=== PATIENT | female | born 1955 | race American Indian/Alaskan Native ===

== ENCOUNTER 2019-04-08 00:20 | Inpatient (IN) | payer MEDICAID, MEDICARE ==
--- NOTE | 2019-04-08 01:05 | XRay Report ---
CHEST 1 VIEW INDICATION / CLINICAL INFORMATION: tachycardia. COMPARISON: None available. FINDINGS: SUPPORT DEVICES: None. HEART / MEDIASTINUM: No significant abnormality. LUNGS / PLEURA: No significant pulmonary or pleural abnormality. No pneumothorax. ADDITIONAL FINDINGS: There are postthoracotomy changes on the right with a left shoulder prosthesis. IMPRESSION: 1 no acute abnormality. Signer Name: Yakov Maldonado MD Signed: 04/08/2019 1:01 AM Workstation Name: [id number]
--- NOTE | 2019-04-08 01:38 | Cat Scan Report ---
Head CT without intravenous contrast INDICATION: Headache COMPARISON: None FINDINGS: The ventricles are normal in size and position. No hemorrhage or extra-axial fluid collecti on. No edema or mass effect. No focal infarct seen. Portions of the sinuses visualized are clear. No skull fracture identified. IMPRESSION: Negative head CT Automated exposure control was utilized to diminish radiation dose Signer Name: Yakov Maldonado MD Signed: 04/08/2019 1:33 AM Workstation Name: [id number]
[2019-04-08 01:39] LABS: Basophils % (Auto) 0.6 % (0.0-1.8); Eosinophils % (Auto) 0.1 % (0.0-4.3); Hematocrit 34.9 % (30.3-42.9); Hemoglobin 11.8 gm/dl (10.1-14.3); Lymphocytes # (Auto) 0.7 K/mm3 (1.2-5.4); Mean Corpuscular HGB Conc 34 % (30-34); Mean Corpuscular Volume 96 fl (79-97); Monocytes # (Auto) 0.4 K/mm3 (0.0-0.8); Monocytes % (Auto) 5.5 % (0.0-7.3); Platelet Count 293 K/mm3 (140-440); Red Blood Count 3.64 M/mm3 (3.65-5.03); Red Cell Distribution Width 13.9 % (13.2-15.2)
[2019-04-08 02:05] LABS: INR 1.04 (0.87-1.13)
[2019-04-08 02:07] LABS: Partial Thromboplastin Time 35.4 Sec. (24.2-36.6)
[2019-04-08 02:12] LABS: Albumin 4.1 g/dL (3.9-5); Calcium 9.5 mg/dL (8.4-10.2)
[2019-04-08] MEDS ORDERED: POTASSIUM CHLORIDE ER 20 MEQ TAB PO ONE (02:46)
--- NOTE | 2019-04-08 02:50 | Emergency Department Report ---
ED Syncope HPI - General Chief Complaint: Fall Stated Complaint: HEADACHE/AMS Time Seen by Provider: 04/08/19 00:35 Source: patient, EMS Exam Limitations: other (Altered Mental Status) - History of Present Illness Initial Comments: Patient reports she does not remember what happened. EMS reports called to the apartment complex where the patient was found laying down outside soaking wet from the rain. Patient denies pain. Reports she was attempting to walk to a family members apartment. ED Review of Systems ROS: Stated complaint: HEADACHE/AMS Other details as noted in HPI Comment: Unobtainable due to pts medical conditions ED Past Medical Hx - Past Medical History Hx Hypertension: Yes Hx CVA: No Hx Diabetes: No Hx Renal Disease: No Hx Arthritis: Yes Hx Seizures: Yes Hx Asthma: No - Surgical History Hx Pacemaker: No - Social History Smoking Status: Never Smoker Substance Use Type: None ED Physical Exam - General Limitations: No Limitations - Other Other exam information: GENERAL: Patient in no acute distress HEAD: Normocephalic, atraumatic EYES: PERRLA, EOM intact, no scleral icterus, no conjunctival hemorrhage, visual carter and acuity wnl NOSE: No tenderness, discharge, sinus tenderness MOUTH: No erythema, bleeding, exudate HEART: Regular rate and rhythm, no murmur, S1-S2 are auscultated, no edema, pulses are symmetric LUNGS: No respiratory distress. Bilateral breath sounds, No tachypnea, No retractions, No wheezing, rales, rhonchi ABDOMEN: Normal bowel sounds, abdomen soft, no tenderness, no rebound, no guarding, no distention, no masses, no CVA tenderness MUSCULOSKELETAL: Normal joint range of motion, no redness, no swelling, no tenderness NEUROLOGIC: GCS 14, Alert and Oriented x1, Cranial nerves intact, normal sensation, normal strength, no cerebellar deficit, NIHSS 0 SKIN: Skin is warm and dry, no wounds, no rashes ED Course Vital Signs 04/08/19 04/08/19 00:59 01:28 Temperature 98.3 F Pulse Rate 102 H 80 Respiratory 18 18 Rate Blood Pressure 163/104 Blood Pressure 136/73 [Left] O2 Sat by Pulse 100 100 Oximetry ED Medical Decision Making - Lab Data Result diagrams: 04/08/19 01:16 04/08/19 01:16 Laboratory Results - last 24 hr 04/08/19 04/08/19 04/08/19 01:16 01:16 01:16 WBC 7.5 RBC 3.64 L Hgb 11.8 Hct 34.9 MCV 96 MCH 32 MCHC 34 RDW 13.9 Plt Count 293 Lymph % (Auto) 9.0 L [place] % (Auto) 5.5 Eos % (Auto) 0.1 Baso % (Auto) 0.6 Lymph # 0.7 L [place] # 0.4 Eos # 0.0 Baso # 0.0 Seg Neutrophils % 84.8 H Seg Neutrophils # 6.4 PT 13.7 INR 1.04 APTT 35.4 Sodium Potassium Chloride Carbon Dioxide Anion Gap BUN Creatinine Estimated GFR BUN/Creatinine Ratio Glucose POC Glucose Calcium Total Bilirubin AST ALT Alkaline Phosphatase Troponin T < 0.010 NT-Pro-B Natriuret Pep Total Protein Albumin Albumin/Globulin Ratio 04/08/19 04/08/19 01:16 01:33 WBC RBC Hgb Hct MCV MCH MCHC RDW Plt Count Lymph % (Auto) [place] % (Auto) Eos % (Auto) Baso % (Auto) Lymph # Fountain # Eos # Baso # Seg Neutrophils % Seg Neutrophils # PT INR APTT Sodium 138 Potassium 2.9 L* Chloride 97.1 L Carbon Dioxide 23 Anion Gap 21 BUN 13 Creatinine 1.2 Estimated GFR 46 BUN/Creatinine Ratio 11 Glucose 102 H POC Glucose 95 Calcium 9.5 Total Bilirubin 0.70 AST 93 H ALT 164 H Alkaline Phosphatase 80 Troponin T NT-Pro-B Natriuret Pep 329.4 Total Protein 7.6 Albumin 4.1 Albumin/Globulin Ratio 1.2 - EKG Data When compared to previous EKG there are: no significant change - Radiology Data Radiology results: report reviewed - Medical Decision Making Patient comfortable. Plan admit for further evaluation. Hospitalist updated and accepts admission. Critical care attestation.: If time is entered above; I have spent that time in minutes in the direct care of this critically ill patient, excluding procedure time. ED Disposition Clinical Impression: Syncope and collapse, Hypokalemia Altered mental status Qualifiers: Altered mental status type: unspecified Qualified Code(s): R41.82 - Altered mental status, unspecified Disposition: -09 OP ADMIT IP TO THIS HOSP Is pt being admited?: Yes Condition: Stable Instructions: Syncope (ED) Referrals: RODDY ROBERTSON MD [Primary Care Provider] - 3-5 Days
[2019-04-08] MEDS ORDERED: ONDANSETRON 4 MG/2 ML INJ IV PRN (03:02)
[2019-04-08] MEDS ORDERED: ACETAMINOPHEN 325 MG TAB PO PRN (03:02)
--- NOTE | 2019-04-08 07:46 | History and Physical Report ---
History of Present Illness Date of examination: 04/08/19 Date of admission: 04/08/19 04:00 Chief complaint: syncope and collapse History of present illness: This is a 63-year-old female with a history of stage II lung cancer status post surgery, seizure disorder on medications presented to the hospital after having a syncopal episode. Patient states that she was with her family members at a dinner republican. She noticed some friends and family members are smoking weights and she decided to leave the place. While she was getting out the place towards her apartment she felt lightheaded and she passed out outside. Patient reports she does not remember what happened after she passed out. EMS reports called to the apartment complex where the patient was found laying down outside soaking wet from the rain. Patient denies any chest pain pain. No seizure-like activity has been reported, patient did not lose control of bowel and bladder and there is no tongue bite. In the ER her CT head showed no acute intracranial process. Patient is alert and oriented now. She is getting admitted for further evaluation and management. Initial lab work showed potassi um level of 2.9. Review of System: Constitutional: no fever, no chills, no weight loss, feels lightheaded Ears, eyes, nose, mouth and throat: no nasal congestion, no nasal discharge, no sinus pressure, no vision change, no red eye. Neck: No neck pain or rigidity. Cardiovascular: No chest pain, no orthopnea, no palpitations, no leg swelling Respiratory: No shortness of breath, no cough, no congestion, no wheezing Gastrointestinal: no abdominal pain, + nausea, no vomiting Genitourinary : no dysuria, no hematuria Musculoskeletal: no joint swelling or muscle ache Integumentary: no rash, no pruritis Neurological: no parathesias, no numbness, no tingling Endocrine: no cold or heat intolerance, no polyuria or polydipsia Hematologic/Lymphatic: no easy bruising, no easy bleeding, no gland swelling Allergic/Immunologic: no urticaria, no angioedema. Past History Past Medical History: arthritis, hypertension, hyperlipidemia, seizures, other (h/o stage 2 lung cancer s/p surgery, history of depression) Past Surgical History: Other (lung surgery) Social history: denies: smoking, alcohol abuse, IV drug use Family history: other (seizure, alcoholism) Medications and Allergies Allergies Allergy/AdvReac Type Severity Reaction Status Date / Time vancomycin Allergy Seizure Verified 04/08/19 13:47 Home Medications Medication Instructions Recorded Confirmed Last Taken Type ALBUTEROL NEB's 2 puff PO PRN 04/08/19 Unknown History Atenolol 25 mg PO DAILY 04/08/19 04/08/19 04/07/19 10:00 History Keppra TAB 500 mg PO QHS 04/08/19 04/08/19 04/07/19 22:00 History Lasix TAB 20 mg PO BID 04/08/19 04/08/19 04/07/19 18:00 History SEROquel 1 tab PO QHS 04/08/19 04/08/19 04/07/19 22:00 History SEROquel 1.5 tab PO QAM 04/08/19 04/08/19 04/07/19 09:00 History amLODIPine 10 mg PO DAILY 04/08/19 04/08/19 04/07/19 10:00 History Active Meds: Active Medications Acetaminophen (Tylenol) 650 mg PO Q4H PRN PRN Reason: Pain MILD(1-3)/Fever >100.5/MANDUJANO Potassium Chloride/Dextrose/Sod Cl (D5w/0.45% Nacl/Kcl 30 Meq) 30 meq in 1,000 mls @ 75 mls/hr IV DIRECT J[facility] Ondansetron HCl (Zofran) 4 mg IV Q8H PRN PRN Reason: Nausea And Vomiting Sodium Chloride (Sodium Chloride Flush Syringe 10 Ml) 10 ml IV BID JUANITO Last Admin: 04/08/19 05:21 Dose: 10 ml Documented by: Sodium Chloride (Sodium Chloride Flush Syringe 10 Ml) 10 ml IV PRN PRN PRN Reason: LINE FLUSH Exam - Physical Exam Narrative exam: GENERAL: well-developed and obese -[place] female lying on bed appeared to be in no discomfort. HEENT: Normocephalic. Atraumatic. No conjunctival congestion or icterus. Patient has moist mucous membranes. NECK: Supple. Trachea midline. CHEST/LUNGS: Clear to auscultated bilaterally, breathing nonlabored. No wheezes crackles or rhonchi. HEART/CARDIOVASCULAR: Regular in rate and rhythm. S1 and S2 positive. ABDOMEN: Abdomen is soft, nontender. Patient has normal bowel sounds. SKIN: There is no rash. Warm and dry. NEURO: No focal motor deficit. Follows command. MUSCULOSKELETAL: No joint effusion or tenderness. EXTRIMITY: No edema, no cyanosis or clubbing. PSYCH: Cooperative. - Constitutional Vitals: Temp Pulse Resp BP Pulse Ox 98.3 F 87 18 136/65 100 04/08/19 00:59 04/08/19 06:28 04/08/19 06:28 04/08/19 06:28 04/08/19 06:28 Results - Labs CBC & Chem 7: 04/08/19 01:16 04/09/19 07:06 Labs: Abnormal lab results 04/08/19 04/08/19 Range/Units 01:16 01:16 RBC 3.64 L (3.65-5.03) M/mm3 Lymph % (Auto) 9.0 L (13.4-35.0) % Lymph # 0.7 L (1.2-5.4) K/mm3 Seg Neutrophils % 84.8 H (40.0-70.0) % Potassium 2.9 L* (3.6-5.0) mmol/L Chloride 97.1 L (98-107) mmol/L Glucose 102 H (65-100) mg/dL AST 93 H (5-40) units/L ALT 164 H (7-56) units/L Assessment and Plan Severe hypokalemia Syncope and collapse Dehydration h/o seizure h/o lung adenocarcinoma s/p surgery Hypertension, uncontrolled Hyperlipidemia, diet controlled - We'll admit the patient to telemetry - CT head in the ER was unremarkable - We will get orthostatic vital, UDS - We'll get 2-D echocardiogram and cardiology consult - We'll continue to replete potassium and monitor BMP - We'll provide gentle IV fluid hydration - We'll give DVT prophylaxis with Lovenox - Cardiac diet for now, will start on amlodipine but will hold Lasix - we'll resume home dose of Keppra - Discharge planning per clinical course
[2019-04-08] MEDS ORDERED: D5W/0.45% NACL/KCL 30 MEQ 30 MEQ/1,000 ML BAG IV SCH (08:00)
[2019-04-08] MEDS: levETIRAcetam 500 MG TAB PO SCH ×2 (14:49→23:07)
[2019-04-08] MEDS: oxyCODONE /ACETAMINOPHEN 5-325MG TAB PO PRN ×2 (14:49→23:08)
[2019-04-08 15:00] LABS: Bacteria,Urine 1+ /HPF (Negative); Bilirubin,Urine NEG (Negative); Blood,Urine NEG (Negative); Color,Urine Yellow (Yellow); Hyaline Casts,Urine 3 /LPF; Mucus,Urine FEW /HPF
[2019-04-08 15:01] LABS: Amphetamine Screen,Urine PRESUMPTIVE NEGATIVE; Benzodiazepines Screen,Urine PRESUMPTIVE NEGATIVE; Cannabinoid Screen,Urine PRESUMPTIVE NEGATIVE; Cocaine Screen,Urine PRESUMPTIVE NEGATIVE; Opiate Screen,Urine PRESUMPTIVE NEGATIVE
[2019-04-08 15:15] LABS: Methadone Screen,Urine PRESUMPTIVE POSITIVE
[2019-04-08] MEDS: IPRATROPIUM/ALBUTEROL SULFATE 3 ML AMPUL.NEB IH SCH ×2 (15:51→20:17)
[2019-04-08] MEDS: QUEtiapine 100 MG TAB PO SCH (23:07)
[2019-04-08] MEDS: ENOXAPARIN 40 MG/0.4 ML INJ SUB-Q SCH (23:09)
[2019-04-09 08:18] LABS: BUN/Creatinine Ratio 11; Blood Urea Nitrogen 9 mg/dL (7-17); Calcium 8.4 mg/dL (8.4-10.2); Hemolysis Index 1
[2019-04-09] MEDS: IPRATROPIUM/ALBUTEROL SULFATE 3 ML AMPUL.NEB IH SCH ×3 (09:00→20:25)
[2019-04-09] MEDS: levETIRAcetam 500 MG TAB PO SCH ×2 (09:26→22:35)
[2019-04-09] MEDS: amLODIPine 10 MG TAB PO SCH (09:27)
[2019-04-09] MEDS: QUEtiapine 100 MG TAB PO SCH ×2 (09:30→22:35)
--- NOTE | 2019-04-09 09:35 | Consultation ---
Past History Past Medical History: arthritis, hypertension, hyperlipidemia, seizures, other (h/o stage 2 lung cancer s/p surgery) Past Surgical History: Other (lung surgery) Social history: denies: smoking, alcohol abuse, IV drug use Family history: other (seizure, alcoholism) Medications and Allergies Allergies Allergy/AdvReac Type Severity Reaction Status Date / Time vancomycin Allergy Seizure Verified 04/08/19 13:47 Home Medications Medication Instructions Recorded Confirmed Last Taken Type ALBUTEROL NEB's 2 puff PO PRN 04/08/19 04/07/19 10:00 History Atenolol 25 mg PO DAILY 04/08/19 04/08/19 04/07/19 10:00 History Keppra TAB 500 mg PO QHS 04/08/19 04/08/19 04/07/19 22:00 History Lasix TAB 20 mg PO BID 04/08/19 04/08/19 04/07/19 18:00 History SEROquel 1 tab PO QHS 04/08/19 04/08/19 04/07/19 22:00 History SEROquel 1.5 tab PO QAM 04/08/19 04/08/19 04/07/19 09:00 History amLODIPine 10 mg PO DAILY 04/08/19 04/08/19 04/07/19 10:00 History Active Meds: Active Medications Acetaminophen (Tylenol) 650 mg PO Q4H PRN PRN Reason: Pain MILD(1-3)/Fever >100.5/MANDUJANO Last Admin: 04/08/19 08:07 Dose: 650 mg Documented by: Albuterol/Ipratropium (Duoneb *Not For Prn Use*) 1 ampul IH TIDRT [facility] Last Admin: 04/09/19 09:00 Dose: 1 ampul Documented by: Amlodipine Besylate (Amlodipine) 10 mg PO DAILY [facility] Last Admin: 04/09/19 09:27 Dose: 10 mg Documented by: Enoxaparin Sodium (Enoxaparin) 40 mg SUB-Q QDAY@2200 [facility] Last Admin: 04/08/19 23:09 Dose: 40 mg Documented by: Potassium Chloride/Dextrose/Sod Cl (D5w/0.45% Nacl/Kcl 30 Meq) 30 meq in 1,000 mls @ 75 mls/hr IV DIRECT [facility] Last Admin: 04/08/19 14:45 Dose: 75 mls/hr Documented by: Levetiracetam (Keppra) 500 mg PO BID [facility] Last Admin: 04/09/19 09:26 Dose: 500 mg Documented by: Ondansetron HCl (Zofran) 4 mg IV Q8H PRN PRN Reason: Nausea And Vomiting Oxycodone/Acetaminophen (Percocet 5/325) 1 tab PO Q6H PRN PRN Reason: Pain, Moderate (4-6) Last Admin: 04/08/19 23:08 Dose: 1 tab Documented by: Quetiapine Fumarate (Seroquel) 300 mg PO HS [facility] Last Admin: 04/08/19 23:07 Dose: 300 mg Documented by: Quetiapine Fumarate (Seroquel) 150 mg PO QAM [facility] Last Admin: 04/09/19 09:30 Dose: 150 mg Documented by: Sodium Chloride (Sodium Chloride Flush Syringe 10 Ml) 10 ml IV BID [facility] Last Admin: 04/09/19 09:31 Dose: 10 ml Documented by: Sodium Chloride (Sodium Chloride Flush Syringe 10 Ml) 10 ml IV PRN PRN PRN Reason: LINE FLUSH Physical Examination Vital Signs BP 163/102 04/07/19 23:30 Results 04/08/19 01:16 04/09/19 07:06 Cardiac Enzymes 04/08/19 04/08/19 04/08/19 Range/Units 01:16 01:16 01:16 WBC 7.5 (4.5-11.0) K/mm3 RBC 3.64 L (3.65-5.03) M/mm3 Hgb 11.8 (10.1-14.3) gm/dl Hct 34.9 (30.3-42.9) % MCV 96 (79-97) fl MCH 32 (28-32) pg MCHC 34 (30-34) % RDW 13.9 (13.2-15.2) % Plt Count 293 (140-440) K/mm3 Lymph % (Auto) 9.0 L (13.4-35.0) % [place] % (Auto) 5.5 (0.0-7.3) % Eos % (Auto) 0.1 (0.0-4.3) % Baso % (Auto) 0.6 (0.0-1.8) % Lymph # 0.7 L (1.2-5.4) K/mm3 [place] # 0.4 (0.0-0.8) K/mm3 Eos # 0.0 (0.0-0.4) K/mm3 Baso # 0.0 (0.0-0.1) K/mm3 Seg Neutrophils % 84.8 H (40.0-70.0) % Seg Neutrophils # 6.4 (1.8-7.7) K/mm3 PT 13.7 (12.2-14.9) Sec. INR 1.04 (0.87-1.13) APTT 35.4 (24.2-36.6) Sec. Sodium (137-145) mmol/L Potassium (3.6-5.0) mmol/L Chloride (98-107) mmol/L Carbon Dioxide (22-30) mmol/L Anion Gap mmol/L BUN (7-17) mg/dL Creatinine (0.7-1.2) mg/dL Estimated GFR ml/min BUN/Creatinine Ratio % Glucose (65-100) mg/dL POC Glucose (70-105) Calcium (8.4-10.2) mg/dL Total Bilirubin (0.1-1.2) mg/dL ALT (7-56) units/L Alkaline Phosphatase (35-129) units/L Troponin T < 0.010 (0.00-0.029) ng/mL NT-Pro-B Natriuret Pep (0-900) pg/mL Total Protein (6.3-8.2) g/dL Albumin (3.9-5) g/dL Albumin/Globulin Ratio % Urine Color (Yellow) Urine Turbidity (Clear) Urine pH (5.0-7.0) Ur Specific Claude (1.003-1.030) Urine Protein (Negative) mg/dL Urine Glucose (UA) (Negative) mg/dL Urine Ketones (Negative) mg/dL Urine Blood (Negative) Urine Nitrite (Negative) Urine Bilirubin (Negative) Urine Urobilinogen (<2.0) mg/dL Ur Leukocyte Esterase (Negative) Urine WBC (Auto) (0.0-6.0) /HPF Urine RBC (Auto) (0.0-6.0) /HPF U Epithel Cells (Auto) (0-13.0) /HPF Urine Bacteria (Auto) (Negative) /HPF Hyaline Casts /LPF Urine Mucus /HPF Urine Opiates Screen Urine Methadone Screen Ur Barbiturates Screen Ur Phencyclidine Scrn Ur Amphetamines Screen U Benzodiazepines Scrn Urine Cocaine Screen U Marijuana (THC) Screen Drugs of Abuse Note 04/08/19 04/08/19 04/08/19 Range/Units 01:16 01:33 08:30 WBC (4.5-11.0) K/mm3 RBC (3.65-5.03) M/mm3 Hgb (10.1-14.3) gm/dl Hct (30.3-42.9) % MCV (79-97) fl MCH (28-32) pg MCHC (30-34) % RDW (13.2-15.2) % Plt Count (140-440) K/mm3 Lymph % (Auto) (13.4-35.0) % [place] % (Auto) (0.0-7.3) % Eos % (Auto) (0.0-4.3) % Baso % (Auto) (0.0-1.8) % Lymph # (1.2-5.4) K/mm3 [place] # (0.0-0.8) K/mm3 Eos # (0.0-0.4) K/mm3 Baso # (0.0-0.1) K/mm3 Seg Neutrophils % (40.0-70.0) % Seg Neutrophils # (1.8-7.7) K/mm3 PT (12.2-14.9) Sec. INR (0.87-1.13) APTT (24.2-36.6) Sec. Sodium 138 (137-145) mmol/L Potassium 2.9 L* (3.6-5.0) mmol/L Chloride 97.1 L (98-107) mmol/L Carbon Dioxide 23 (22-30) mmol/L Anion Gap 21 mmol/L BUN 13 (7-17) mg/dL Creatinine 1.2 (0.7-1.2) mg/dL Estimated GFR 46 ml/min BUN/Creatinine Ratio 11 % Glucose 102 H (65-100) mg/dL POC Glucose 95 73 (70-105) Calcium 9.5 (8.4-10.2) mg/dL Total Bilirubin 0.70 (0.1-1.2) mg/dL ALT 164 H (7-56) units/L Alkaline Phosphatase 80 (35-129) units/L Troponin T (0.00-0.029) ng/mL NT-Pro-B Natriuret Pep 329.4 (0-900) pg/mL Total Protein 7.6 (6.3-8.2) g/dL Albumin 4.1 (3.9-5) g/dL Albumin/Globulin Ratio 1.2 % Urine Color (Yellow) Urine Turbidity (Clear) Urine pH (5.0-7.0) Ur Specific Claude (1.003-1.030) Urine Protein (Negative) mg/dL Urine Glucose (UA) (Negative) mg/dL Urine Ketones (Negative) mg/dL Urine Blood (Negative) Urine Nitrite (Negative) Urine Bilirubin (Negative) Urine Urobilinogen (<2.0) mg/dL Ur Leukocyte Esterase (Negative) Urine WBC (Auto) (0.0-6.0) /HPF Urine RBC (Auto) (0.0-6.0) /HPF U Epithel Cells (Auto) (0-13.0) /HPF Urine Bacteria (Auto) (Negative) /HPF Hyaline Casts /LPF Urine Mucus /HPF Urine Opiates Screen Urine Methadone Screen Ur Barbiturates Screen Ur Phencyclidine Scrn Ur Amphetamines Screen U Benzodiazepines Scrn Urine Cocaine Screen U Marijuana (THC) Screen Drugs of Abuse Note 04/08/19 04/08/19 04/08/19 Range/Units 13:45 14:10 14:10 WBC (4.5-11.0) K/mm3 RBC (3.65-5.03) M/mm3 Hgb (10.1-14.3) gm/dl Hct (30.3-42.9) % MCV (79-97) fl MCH (28-32) pg MCHC (30-34) % RDW (13.2-15.2) % Plt Count (140-440) K/mm3 Lymph % (Auto) (13.4-35.0) % [place] % (Auto) (0.0-7.3) % Eos % (Auto) (0.0-4.3) % Baso % (Auto) (0.0-1.8) % Lymph # (1.2-5.4) K/mm3 [place] # (0.0-0.8) K/mm3 Eos # (0.0-0.4) K/mm3 Baso # (0.0-0.1) K/mm3 Seg Neutrophils % (40.0-70.0) % Seg Neutrophils # (1.8-7.7) K/mm3 PT (12.2-14.9) Sec. INR (0.87-1.13) APTT (24.2-36.6) Sec. Sodium (137-145) mmol/L Potassium 3.0 L (3.6-5.0) mmol/L Chloride (98-107) mmol/L Carbon Dioxide (22-30) mmol/L Anion Gap mmol/L BUN (7-17) mg/dL Creatinine (0.7-1.2) mg/dL Estimated GFR ml/min BUN/Creatinine Ratio % Glucose (65-100) mg/dL POC Glucose (70-105) Calcium (8.4-10.2) mg/dL Total Bilirubin (0.1-1.2) mg/dL ALT (7-56) units/L Alkaline Phosphatase (35-129) units/L Troponin T (0.00-0.029) ng/mL NT-Pro-B Natriuret Pep (0-900) pg/mL Total Protein (6.3-8.2) g/dL Albumin (3.9-5) g/dL Albumin/Globulin Ratio % Urine Color Yellow (Yellow) Urine Turbidity Clear (Clear) Urine pH 6.0 (5.0-7.0) Ur Specific Claude 1.016 (1.003-1.030) Urine Protein 30 mg/dl (Negative) mg/dL Urine Glucose (UA) Neg (Negative) mg/dL Urine Ketones 20 (Negative) mg/dL Urine Blood Neg (Negative) Urine Nitrite Neg (Negative) Urine Bilirubin Neg (Negative) Urine Urobilinogen 2.0 (<2.0) mg/dL Ur Leukocyte Esterase Neg (Negative) Urine WBC (Auto) 6.0 (0.0-6.0) /HPF Urine RBC (Auto) 5.0 (0.0-6.0) /HPF U Epithel Cells (Auto) 1.0 (0-13.0) /HPF Urine Bacteria (Auto) 1+ (Negative) /HPF Hyaline Casts 3 /LPF Urine Mucus Few /HPF Urine Opiates Screen Presumptive negative Urine Methadone Screen Presumptive positive Ur Barbiturates Screen Presumptive negative Ur Phencyclidine Scrn Presumptive negative Ur Amphetamines Screen Presumptive negative U Benzodiazepines Scrn Presumptive negative Urine Cocaine Screen Presumptive negative U Marijuana (THC) Screen Presumptive negative Drugs of Abuse Note Disclamer 04/08/19 04/09/19 Range/Units 16:54 07:06 WBC (4.5-11.0) K/mm3 RBC (3.65-5.03) M/mm3 Hgb (10.1-14.3) gm/dl Hct (30.3-42.9) % MCV (79-97) fl MCH (28-32) pg MCHC (30-34) % RDW (13.2-15.2) % Plt Count (140-440) K/mm3 Lymph % (Auto) (13.4-35.0) % [place] % (Auto) (0.0-7.3) % Eos % (Auto) (0.0-4.3) % Baso % (Auto) (0.0-1.8) % Lymph # (1.2-5.4) K/mm3 [place] # (0.0-0.8) K/mm3 Eos # (0.0-0.4) K/mm3 Baso # (0.0-0.1) K/mm3 Seg Neutrophils % (40.0-70.0) % Seg Neutrophils # (1.8-7.7) K/mm3 PT (12.2-14.9) Sec. INR (0.87-1.13) APTT (24.2-36.6) Sec. Sodium 140 (137-145) mmol/L Potassium 3.2 L (3.6-5.0) mmol/L Chloride 101.0 (98-107) mmol/L Carbon Dioxide 23 (22-30) mmol/L Anion Gap 19 mmol/L BUN 9 (7-17) mg/dL Creatinine 0.8 (0.7-1.2) mg/dL Estimated GFR > 60 ml/min BUN/Creatinine Ratio 11 % Glucose 96 (65-100) mg/dL POC Glucose 111 H (70-105) Calcium 8.4 (8.4-10.2) mg/dL Total Bilirubin (0.1-1.2) mg/dL ALT (7-56) units/L Alkaline Phosphatase (35-129) units/L Troponin T (0.00-0.029) ng/mL NT-Pro-B Natriuret Pep (0-900) pg/mL Total Protein (6.3-8.2) g/dL Albumin (3.9-5) g/dL Albumin/Globulin Ratio % Urine Color (Yellow) Urine Turbidity (Clear) Urine pH (5.0-7.0) Ur Specific Claude (1.003-1.030) Urine Protein (Negative) mg/dL Urine Glucose (UA) (Negative) mg/dL Urine Ketones (Negative) mg/dL Urine Blood (Negative) Urine Nitrite (Negative) Urine Bilirubin (Negative) Urine Urobilinogen (<2.0) mg/dL Ur Leukocyte Esterase (Negative) Urine WBC (Auto) (0.0-6.0) /HPF Urine RBC (Auto) (0.0-6.0) /HPF U Epithel Cells (Auto) (0-13.0) /HPF Urine Bacteria (Auto) (Negative) /HPF Hyaline Casts /LPF Urine Mucus /HPF Urine Opiates Screen Urine Methadone Screen Ur Barbiturates Screen Ur Phencyclidine Scrn Ur Amphetamines Screen U Benzodiazepines Scrn Urine Cocaine Screen U Marijuana (THC) Screen Drugs of Abuse Note Comprehensive Metabolic Panel 04/08/19 04/09/19 Range/Units 13:45 07:06 Sodium 140 (137-145) mmol/L Potassium 3.0 L 3.2 L (3.6-5.0) mmol/L Chloride 101.0 (98-107) mmol/L Carbon Dioxide 23 (22-30) mmol/L BUN 9 (7-17) mg/dL Creatinine 0.8 (0.7-1.2) mg/dL Glucose 96 (65-100) mg/dL Calcium 8.4 (8.4-10.2) mg/dL Assessment and Plan full consult dictated thx
[2019-04-09] MEDS: oxyCODONE /ACETAMINOPHEN 5-325MG TAB PO PRN ×2 (12:44→23:47)
--- NOTE | 2019-04-09 14:49 | Progress Note ---
Assessment and Plan Severe hypokalemia - Continue to replete, likely due to home Lasix that she was taking - Monitor BMP Syncope and collapse - CT head without any acute findings - 2-D echo ordered, cardiology consult - Plan for stress test tomorrow Dehydration, continue IV fluid for now h/o seizure, continue Keppra 500 twice a day h/o lung adenocarcinoma s/p surgery - Patient states that she's been in remission for last one year - We'll continue to follow up at [place] Hypertension, uncontrolled - Resumed her home medications, and adjust antihypertensives as needed - IV hydralazine as needed to keep SBP less than 160 - Continue cardiac diet Hyperlipidemia, diet controlled - We'll give DVT prophylaxis with Lovenox - Discharge planning per clinical course Subjective Date of service: 04/09/19 Interval history: Patient seen and examined. Medical records and medication list reviewed. No acute event overnight noted by the RN. Patient denies any chest pain or difficulty breathing. Patient is tolerating diet. Discussed plan of care at bedside with patient. Objective - Exam Narrative Exam: GENERAL: well-developed and obese -Nigerian female lying on bed appeared to be in no discomfort. HEENT: Normocephalic. Atraumatic. No conjunctival congestion or icterus. Patient has moist mucous membranes. NECK: Supple. Trachea midline. CHEST/LUNGS: Clear to auscultated bilaterally, breathing nonlabored. No wheezes crackles or rhonchi. HEART/CARDIOVASCULAR: Regular in rate and rhythm. S1 and S2 positive. ABDOMEN: Abdomen is soft, nontender. Patient has normal bowel sounds. SKIN: There is no rash. Warm and dry. NEURO: No focal motor deficit. Follows command. MUSCULOSKELETAL: No joint effusion or tenderness. EXTRIMITY: No edema, no cyanosis or clubbing. PSYCH: Cooperative. - Constitutional Vitals: Vital Signs - 12hr 04/09/19 04/09/19 04/09/19 05:42 05:45 08:20 Temperature 97.8 F 98.2 F Pulse Rate 74 77 Pulse Rate [ Anterior Bilateral Throughout] Respiratory 20 18 Rate Respiratory Rate [Anterior Bilateral Throughout] Blood Pressure 135/89 142/86 Blood Pressure [Left] O2 Sat by Pulse 100 99 Oximetry 04/09/19 04/09/19 04/09/19 08:30 09:01 09:20 Temperature Pulse Rate 86 Pulse Rate [ 88 Anterior Bilateral Throughout] Respiratory Rate Respiratory 20 Rate [Anterior Bilateral Throughout] Blood Pressure Blood Pressure 142/86 [Left] O2 Sat by Pulse 97 Oximetry 04/09/19 09:27 Temperature Pulse Rate 86 Pulse Rate [ Anterior Bilateral Throughout] Respiratory Rate Respiratory Rate [Anterior Bilateral Throughout] Blood Pressure Blood Pressure [Left] O2 Sat by Pulse Oximetry - Labs CBC & Chem 7: 04/08/19 01:16 04/10/19 07:23 Labs: Abnormal lab results 04/08/19 04/09/19 Range/Units 16:54 07:06 Potassium 3.2 L (3.6-5.0) mmol/L POC Glucose 111 H (70-105)
[2019-04-09] MEDS: ENOXAPARIN 40 MG/0.4 ML INJ SUB-Q SCH (22:35)
[2019-04-10] MEDS ORDERED: REGADENOSON 0.4 MG/5 ML INJ IV ONE (06:54)
[2019-04-10] MEDS: IPRATROPIUM/ALBUTEROL SULFATE 3 ML AMPUL.NEB IH SCH ×3 (08:12→22:05)
[2019-04-10 08:39] LABS: BUN/Creatinine Ratio 14; Blood Urea Nitrogen 10 mg/dL (7-17); Calcium 8.5 mg/dL (8.4-10.2); Hemolysis Index 4
--- NOTE | 2019-04-10 10:55 | Progress Note ---
Assessment and Plan Head CT with NAF. Orthostatics unremarkable. Echo reviewed - EF 55-60%, mild pulm HTN with RVSP 41mmHg. Tele reviewed - pt in SR with no acute events noted since admission. Pt was brought down for treadmill MPI stress test today. However, pt is unable to walk on treadmill and thus will require pharmacologic MPI stress test. Lexiscan is known to decrease seizure threshold and pt's Keppra was held this AM. Recommend continuation of Keppra (do not hold any doses - d/w primary RN) and will reschedule for lexiscan MPI stress test in AM. NPO after MN. The patient has been seen in conjunction with Dr. Turner who agrees with the assessment and plan of care. - Patient Problems (1) Syncope Current Visit: Yes Status: Acute (2) Seizure disorder Current Visit: Yes Status: Chronic (3) Hypokalemia Current Visit: Yes Status: Acute (4) Lung cancer Current Visit: Yes Status: Chronic (5) HTN (hypertension) Current Visit: Yes Status: Chronic (6) Hyperlipidemia Current Visit: Yes Status: Chronic Subjective Date of service: 04/10/19 Principal diagnosis: syncope Interval history: pt brought down for stress test, no current complaints. Objective Last Vital Signs Temp 97.9 F 04/10/19 05:23 Pulse 85 04/10/19 08:12 Resp 16 04/10/19 08:12 BP 133/74 04/10/19 05:22 Pulse Ox 95 04/10/19 08:11 - Physical Examination General: No Apparent Distress HEENT: Positive: PERRL, Normocephaly, Mucus Membranes Moist Neck: Positive: neck supple, trachea midline Cardiac: Positive: Reg Rate and Rhythm, S1/S2 Lungs: Positive: Decreased Breath Sounds Neuro: Positive: Grossly Intact Abdomen: Negative: Tender Skin: Negative: Rash Musculoskeletal: No Pain Extremities: Absent: edema - Labs and Meds Comprehensive Metabolic Panel 04/10/19 Range/Units 07:23 Sodium 139 (137-145) mmol/L Potassium 4.1 D (3.6-5.0) mmol/L Chloride 102.5 (98-107) mmol/L Carbon Dioxide 23 (22-30) mmol/L BUN 10 (7-17) mg/dL Creatinine 0.7 (0.7-1.2) mg/dL Glucose 91 (65-100) mg/dL Calcium 8.5 (8.4-10.2) mg/dL - Imaging and Cardiology EKG: report reviewed, image reviewed Echo: report reviewed - Telemetry EKG Rhythm: Sinus Rhythm
--- NOTE | 2019-04-10 10:59 | Consultation ---
CARDIOLOGY CONSULTATION REFERRING PHYSICIAN: Dr. Humphries. REASON FOR CONSULTATION: Advice and opinion regarding syncope. HISTORY OF PRESENT ILLNESS: The patient is a pleasant 63-year-old -Spanish female with history of hypertension, hyperlipidemia, past tobacco abuse, lung cancer, status post surgery, who presents here after being found lying down outside her apartment complex in the rain, does not remember what happened. She does have a history of depression and these medications were changed. She was apparently moving as well. She states that she was not taking her medications as instructed or eating and drinking. She is eating now as seen on Tele. Denies any complaints. She states that she had no preceding chest pain or shortness of breath. No lightheadedness, dizziness or palpitations prior to this. She does not remember the episode. No bleeding. No history of bleeding diathesis. No abdominal pain, hematochezia, melena or hemoptysis. No blurred vision or headache. No rashes, fevers or chills. PAST MEDICAL HISTORY: As aforementioned, hypertension, arthritis, hyperlipidemia, seizures, depression, stage 2 lung cancer, status post surgery, details unclear. PRIMARY CARE PHYSICIAN: At [facility]. SOCIAL HISTORY: Past smoking history, quit 7 years ago. FAMILY HISTORY: No family history of premature heart disease. ALLERGIES: VANCOMYCIN. MEDICATIONS: Inpatient and outpatient medications reviewed. REVIEW OF SYSTEMS: As per HPI. PHYSICAL EXAMINATION: VITAL SIGNS: Blood pressure is 130/90. She is afebrile. Tele reveals sinus rhythm, no dysrhythmias. O2 sat is 99% on room air, respirations 16. GENERAL: This is a middle-aged -Spanish female, in no apparent distress, oriented x 3. HEENT: Sclerae are anicteric. PERRLA. NECK: Supple. No masses. No JVD. CHEST: Clear to auscultation bilaterally. Good air movement. CARDIOVASCULAR: Regular rhythm, S1, S2. ABDOMEN: Soft, nontender, nondistended. Normoactive bowel sounds in all 4 quadrants. No mass or bruits. EXTREMITIES: No cyanosis, clubbing, edema. Good peripheral pulses. SKIN: Intact. No rashes. DIAGNOSTIC DATA: EKG shows sinus rhythm with baseline artifact, nonspecific ST-T wave changes. LABORATORY DATA: Potassium is 2.9, creatinine is 1.2. Troponin negative. BMP negative. Urinalysis is positive for methadone. UA is unremarkable. Chest x-ray shows no acute abnormality. Head CT also unremarkable. ASSESSMENT AND PLAN: The patient is a pleasant 63-year-old -Spanish female. 1. Unwitnessed syncope with retrograde amnesia. The patient is unclear about the episode. She is clinically stable. No evidence of dysrhythmias. Troponin and EKG are unremarkable. Chest x-ray, head CT also unremarkable. Follow up on echocardiogram. We will check nuclear stress test. The patient is clinically stable at this point. 2. Continue repleting potassium/electrolytes. We will follow along with you. JOB# [id number] SBM/NTS
[2019-04-10] MEDS: levETIRAcetam 500 MG TAB PO SCH ×2 (11:38→21:56)
[2019-04-10] MEDS: oxyCODONE /ACETAMINOPHEN 5-325MG TAB PO PRN ×2 (11:38→21:56)
[2019-04-10] MEDS: QUEtiapine 100 MG TAB PO SCH ×2 (11:39→21:56)
[2019-04-10] MEDS: amLODIPine 10 MG TAB PO SCH (11:40)
--- NOTE | 2019-04-10 14:39 | Progress Note ---
Assessment and Plan Severe hypokalemia - resolved - Continue to replete as needed, likely due to home Lasix that she was taking - Monitor BMP Syncope and collapse - possible vasovagal vs drug abuse(uds +ve for methadone) vs seizure (but no h/o postictal or incontinance or tongue bite) vs cardiac arrythmia ( has risk factor - obesity, drug abuse, uncontrolled BP, hyperlipidemia) - CT head without any acute findings - 2-D echo showed preserved EF, cardiology consulted - Pt was brought down for treadmill MPI stress test today. However, pt is unable to walk on treadmill and thus will require pharmacologic MPI stress test. - - However Lexiscan is known to decrease seizure threshold and pt's Keppra was held this AM. - rescheduled for lexiscan MPI stress test in AM. NPO after MN. Dehydration, continue IV fluid for now h/o seizure, continue Keppra 500 twice a day h/o lung adenocarcinoma s/p surgery - Patient states that she's been in remission for last one year - We'll continue to follow up at [place] Hypertension, uncontrolled - Resumed her home medications, and adjust antihypertensives as needed - IV hydralazine as needed to keep SBP less than 160 - Continue cardiac diet Hyperlipidemia, diet controlled Drug abuse - UDS was positive for methadone, counselled - We'll give DVT prophylaxis with Lovenox - Discharge planning per clinical course and pending stress test Subjective Date of service: 04/10/19 Principal diagnosis: syncope Interval history: Patient seen and examined. Medical records and medication list reviewed. No acute event overnight noted by the RN. Patient c/o intermittent chest pain but no difficulty breathing. Patient is tolerating diet. Could not do stress test today Discussed plan of care at bedside with patient. Objective - Exam Narrative Exam: GENERAL: well-developed and obese -Hungarian female lying on bed appeared to be in no discomfort. HEENT: Normocephalic. Atraumatic. No conjunctival congestion or icterus. Patient has moist mucous membranes. NECK: Supple. Trachea midline. CHEST/LUNGS: Clear to auscultated bilaterally, breathing nonlabored. No wheezes crackles or rhonchi. HEART/CARDIOVASCULAR: Regular in rate and rhythm. S1 and S2 positive. ABDOMEN: Abdomen is soft, nontender. Patient has normal bowel sounds. SKIN: There is no rash. Warm and dry. NEURO: No focal motor deficit. Follows command. MUSCULOSKELETAL: No joint effusion or tenderness. EXTRIMITY: No edema, no cyanosis or clubbing. PSYCH: Cooperative. - Constitutional Vitals: Vital Signs - 12hr 04/10/19 04/10/19 04/10/19 05:22 05:23 07:42 Temperature 97.9 F 98.6 F Pulse Rate 80 83 Pulse Rate [ Anterior Bilateral Throughout] Respiratory 18 18 Rate Respiratory Rate [Anterior Bilateral Throughout] Blood Pressure 133/74 122/81 O2 Sat by Pulse 99 98 Oximetry 04/10/19 04/10/19 04/10/19 08:11 08:12 10:30 Temperature Pulse Rate Pulse Rate [ 85 Anterior Bilateral Throughout] Respiratory Rate Respiratory 16 Rate [Anterior Bilateral Throughout] Blood Pressure 133/84 O2 Sat by Pulse 95 Oximetry 04/10/19 04/10/19 11:40 13:53 Temperature Pulse Rate 92 H Pulse Rate [ 86 Anterior Bilateral Throughout] Respiratory Rate Respiratory 20 Rate [Anterior Bilateral Throughout] Blood Pressure O2 Sat by Pulse Oximetry - Labs CBC & Chem 7: 04/08/19 01:16 04/10/19 07:23
[2019-04-10] MEDS ORDERED: LIP THERAPY VASELINE TP PRN (14:41)
[2019-04-10] MEDS: ENOXAPARIN 40 MG/0.4 ML INJ SUB-Q SCH (21:56)
[2019-04-11] MEDS ORDERED: ALBUTEROL 2.5 MG/3 ML NEBU IH PRN (04:15)
[2019-04-11] MEDS ORDERED: REGADENOSON 0.4 MG/5 ML INJ IV ONE (07:32)
[2019-04-11] MEDS: levETIRAcetam 500 MG TAB PO SCH ×3 (08:15→22:28)
[2019-04-11] MEDS: oxyCODONE /ACETAMINOPHEN 5-325MG TAB PO PRN ×2 (10:22→22:38)
[2019-04-11] MEDS: QUEtiapine 100 MG TAB PO SCH ×2 (10:23→22:28)
[2019-04-11] MEDS: amLODIPine 10 MG TAB PO SCH (10:23)
--- NOTE | 2019-04-11 10:45 | Progress Note ---
Assessment and Plan Head CT with NAF. Orthostatics unremarkable. Echo reviewed - EF 55-60%, mild pulm HTN with RVSP 41mmHg. Tele reviewed - pt in SR with no acute events noted since admission. S/p lexiscan MPI stress test today which was negative. Currently stable cardiac status. Pt may discharge home from cardiology standpoint. Recommend pt follow up in our office with Dr. Gisell Gonzalez within 2 weeks of discharge ([phone]). The patient has been seen in conjunction with Dr. Turner who agrees with the assessment and plan of care. - Patient Problems (1) Syncope Current Visit: Yes Status: Acute (2) Seizure disorder Current Visit: Yes Status: Chronic (3) Hypokalemia Current Visit: Yes Status: Acute (4) Lung cancer Current Visit: Yes Status: Chronic (5) HTN (hypertension) Current Visit: Yes Status: Chronic (6) Hyperlipidemia Current Visit: Yes Status: Chronic Subjective Date of service: 04/11/19 Principal diagnosis: syncope Interval history: pt for stress test, no current complaints. Objective Last Vital Signs Temp 98.2 F 04/11/19 08:07 Pulse 75 04/11/19 10:23 Resp 18 04/11/19 08:07 BP 123/78 04/11/19 10:23 Pulse Ox 97 04/11/19 08:07 - Physical Examination General: No Apparent Distress HEENT: Positive: PERRL, Normocephaly, Mucus Membranes Moist Neck: Positive: neck supple, trachea midline Cardiac: Positive: Reg Rate and Rhythm, S1/S2 Lungs: Positive: Decreased Breath Sounds Neuro: Positive: Grossly Intact Abdomen: Negative: Tender Skin: Negative: Rash Musculoskeletal: No Pain Extremities: Absent: edema - Imaging and Cardiology EKG: report reviewed, image reviewed Echo: report reviewed - Telemetry EKG Rhythm: Sinus Rhythm
--- NOTE | 2019-04-11 13:32 | Discharge Summary ---
Providers - Providers Date of Admission: 04/08/19 04:00 Date of discharge: 04/11/19 Attending physician: DANILO BATRES 04/08/19 10:05 Consult to Physician [CONS] Routine Comment: Consulting Provider: NOE JENNINGS Physician Instructions: Reason For Exam: syncope [facility] Condition: Stable Pertinent studies: CXR head CT MPI stress test 2d ECHO Hospital course: Discharge diagnosis: Severe hypokalemia - resolved - Continue to replete as needed, likely due to home Lasix that she was taking - Monitored BMP, lasix held on d/c Syncope and collapse - multifactorial - possible vasovagal vs drug abuse(uds +ve for methadone) vs hypokalemia - ruled out seizure (but no h/o postictal or incontinance or tongue bite) and cardiac arrythmia ( negative stress test and NSR on tele) - CT head without any acute findings - 2-D echo showed preserved EF, cardiology consulted - lexiscan MPI stress test in the AM was normal - will f/u cardiology outpt. BB was hold on discharge Dehydration, continue IV fluid for now h/o seizure, continue Keppra 500 twice a day h/o lung adenocarcinoma s/p surgery - Patient states that she's been in remission for last one year - We'll continue to follow up at [place] Hypertension, uncontrolled - Resumed her home medications, and adjust antihypertensives as needed - IV hydralazine as needed to keep SBP less than 160 - Continue cardiac diet Hyperlipidemia, diet controlled Drug abuse - UDS was positive for methadone, counselled - We'll give DVT prophylaxis with Lovenox - Discharge planning per clinical course and pending stress test Physical exam: GENERAL: well-developed and obese -[place] female lying on bed appeared to be in no discomfort. HEENT: Normocephalic. Atraumatic. No conjunctival congestion or icterus. Patient has moist mucous membranes. NECK: Supple. Trachea midline. CHEST/LUNGS: Clear to auscultated bilaterally, breathing nonlabored. No wheezes crackles or rhonchi. HEART/CARDIOVASCULAR: Regular in rate and rhythm. S1 and S2 positive. ABDOMEN: Abdomen is soft, nontender. Patient has normal bowel sounds. SKIN: There is no rash. Warm and dry. NEURO: No focal motor deficit. Follows command. MUSCULOSKELETAL: No joint effusion or tenderness. EXTRIMITY: No edema, no cyanosis or clubbing. PSYCH: Cooperative. Disposition: DC-01 TO HOME OR SELFCARE Time spent for discharge: 34 minutes Core Measure Documentation - Palliative Care Palliative Care/ Comfort Measures: Not Applicable - Core Measures Any of the following diagnoses?: none Exam - Constitutional Vitals: Temp Pulse Resp BP Pulse Ox 98.2 F 75 18 123/78 97 04/11/19 08:07 04/11/19 10:23 04/11/19 08:07 04/11/19 10:23 04/11/19 08:07 Plan Activity: advance as tolerated, fall precautions Weight Bearing Status: Weight Bear as Tolerated Diet: low fat, low salt Follow up with: RODDY ROBERTSON MD [Primary Care Provider] - 3-5 Days Prescriptions: Pravastatin [Pravachol] 40 mg PO QHS #30 tablet Aspirin EC [Halfprin EC] 81 mg PO QDAY #30 tablet. levETIRAcetam [Keppra TAB] 500 mg PO BID #60 tablet
--- NOTE | 2019-04-11 21:22 | Treadmill Report ---
NUCLEAR CARDIAC IMAGING REPORT INDICATION FOR PROCEDURE: Chest pain. Informed consent was obtained. Vasodilator stress was achieved with the intravenous administration of 0.4 mg of Lexiscan per protocol. Rest and stress nuclear cardiac imaging were performed following the intravenous administration of technetium-99m Myoview per protocol. Gated SPECT imaging demonstrates a post-stress left ventricular ejection fraction of 61% with normal wall motion. Myocardial perfusion imaging demonstrates no significant cavity change between stress and rest. No significant stress induced perfusion defects are seen. Nuclear cardiac imaging demonstrates grossly normal post-stress left ventricular systolic function with no significant evidence of myocardial ischemia or necrosis. JOB# [id number] BRD/NTS
[2019-04-11] MEDS: ENOXAPARIN 40 MG/0.4 ML INJ SUB-Q SCH (22:28)
[2019-04-12 04:31] VITALS: BP 140/88
[2019-04-12] MEDS: QUEtiapine 100 MG TAB PO SCH (08:15)
[2019-04-12] MEDS: amLODIPine 10 MG TAB PO SCH (08:15)
[2019-04-12] MEDS: oxyCODONE /ACETAMINOPHEN 5-325MG TAB PO PRN (08:15)
[2019-04-12] MEDS: levETIRAcetam 500 MG TAB PO SCH (08:42)
--- NOTE | 2019-04-12 12:15 | Event Note ---
Date: 04/12/19 Patient could not leave because she didnot have ride and no schneider to access to her apartment. She was discharged this am.
== END 2019-04-12 09:06 | disposition home or self-care (01) | DRG 312 ==
LOC: ED 00:20 → 4A 04:00
PROVIDERS: ADMIT Internal Medicine Geriatric Medicine; ATTEND Internal Medicine
DX: R55 Syncope and collapse (principal); E87.6 Hypokalemia; M19.90 Unspecified osteoarthritis, unspecified site; F32.9 Major depressive disorder, single episode, unspecified; E78.5 Hyperlipidemia, unspecified; R56.9 Unspecified convulsions; E86.0 Dehydration; F11.10 Opioid abuse, uncomplicated; Z88.1 Allergy status to other antibiotic agents; Z79.899 Other long term (current) drug therapy; Z81.1 Family history of alcohol abuse and dependence; Z85.118 Personal history of other malignant neoplasm of bronchus and lung; Z79.891 Long term (current) use of opiate analgesic; Z71.51 Drug abuse counseling and surveillance of drug abuser
CPT/HCPCS: 36415; 70450; 71045; 78452; 80048; 80053; 80307; 81001; 82962; 83880; 84132; 84484; 85025; 85610; 85730; 93005; 93010; 93017; 93306; 94640; G0378; A9502; J1650; J2785